=== PATIENT | female | born 1985 | race Hispanic/Latino ===

== ENCOUNTER 2016-10-04 18:00 | Emergency (ER) | payer SELFPAY ==
[2016-10-04] MEDS ORDERED: ONDANSETRON ODT 4 MG TAB ONE (22:02)
[2016-10-04] MEDS ORDERED: Ibuprofen 400 MG TAB ONE (22:02)
== END 2016-10-04 22:21 | disposition home or self-care (01) ==
LOC: ER 18:00
DX: K02.9 Dental caries, unspecified (principal); R51 Headache; R11.0 Nausea
CPT/HCPCS: 36415; 74020; 80053; 81001; 81025; 85025; 87088